=== PATIENT | female | born 1995 | race Caucasian/White ===

== ENCOUNTER 2022-08-17 13:17 | Inpatient (IN) ==
[2022-08-17] MEDS ORDERED: Al Hydrox/Mg Hydrox/Simet LIQ 30 ML UDC PO PRN (16:01)
[2022-08-17] MEDS: NORETHINDRONE 0.35 MG PO SCH (16:45)
[2022-08-18] MEDS: Vitamin THERAPEUTIC TAB PO SCH (10:11)
[2022-08-18] MEDS: NORETHINDRONE 0.35 MG PO SCH (16:13)
[2022-08-19] MEDS: Vitamin THERAPEUTIC TAB PO SCH (10:52)
[2022-08-19] MEDS: NORETHINDRONE 0.35 MG PO SCH (16:13)
[2022-08-20] MEDS: Vitamin THERAPEUTIC TAB PO SCH (10:40)
[2022-08-20 12:02] LABS: HDL Cholesterol 50.4 mg/dL
== END 2022-08-20 16:30 | disposition home or self-care (01) | DRG 751 ==
LOC: BSU 15:16
PROVIDERS: ADMIT Psychiatry & Neurology Psychiatry; ATTEND Psychiatry & Neurology Psychiatry